=== PATIENT | female | born 1990 | race Caucasian/White ===

== ENCOUNTER 2020-04-04 15:59 | Outpatient (CLI) | payer OTHER ==
[2020-04-04 21:18] LABS: HB2 TOTAL 14.6 g/dL; HEMOGLOBIN A1C 0.51 g/dL; HEMOGLOBIN A1C % 5.3 % (4.6-6.2)
== END 2020-04-04 16:00 | disposition home or self-care (01) ==
LOC: LAB.S 15:59
PROVIDERS: ATTEND Obstetrics & Gynecology
DX: E28.2 Polycystic ovarian syndrome (principal); E03.9 Hypothyroidism, unspecified; Z32.01 Encounter for pregnancy test, result positive
CPT/HCPCS: 36415; 83036; 84144; 84443

== ENCOUNTER 2020-04-08 09:59 | Outpatient (CLI) | payer OTHER | END 2020-04-08 10:00 | disposition home or self-care (01) | LOC: LAB.S 09:59 | PROVIDERS: ATTEND Obstetrics & Gynecology | DX: E03.9 Hypothyroidism, unspecified (principal); E28.2 Polycystic ovarian syndrome; Z32.01 Encounter for pregnancy test, result positive | CPT/HCPCS: 36415; 84144 ==

== ENCOUNTER 2020-04-11 16:47 | Outpatient (CLI) | payer OTHER | END 2020-04-11 16:48 | disposition home or self-care (01) | LOC: LAB.S 16:47 | PROVIDERS: ATTEND Obstetrics & Gynecology | DX: E28.2 Polycystic ovarian syndrome (principal) | CPT/HCPCS: 36415; 84144 ==

== ENCOUNTER 2020-04-28 11:03 | Outpatient (CLI) | payer OTHER ==
[2020-04-28 16:18] LABS: BILIRUBIN,URINE NEGATIVE (NEGATIVE); GLUCOSE, URINE (UA) NEGATIVE (NEGATIVE); KETONES,URINE (UA) TRACE mg/dL (NEGATIVE); LEUKOCYTE ESTERASE, URINE NEGATIVE (NEGATIVE); NITRITE,URINE NEGATIVE (NEGATIVE); OCCULT BLOOD,URINE SMALL (NEGATIVE); PH,URINE 6.5 PH (5.0-7.5); PROTEIN,URINE NEGATIVE (NEGATIVE); UROBILINOGEN,URINE 0.2 (NORMAL) E.U./dL (NORMAL)
[2020-04-28 16:24] LABS: CLARITY,URINE HAZY (CLEAR)
[2020-04-28 16:46] LABS: BACTERIA,URINE Few /HPF (None Seen); MUCUS,URINE Moderate Strands; SQUAMOUS EPITHELIAL CELL,UR MANY Squamous (<= Few)
[2020-04-28 16:47] LABS: CRYSTALS,URINE 11-25 Triple Phos /LPF
[2020-04-28 19:34] LABS: TRICHOMONAS VAGINALIS DNA NEGATIVE (NEGATIVE)
== END 2020-04-28 23:59 | disposition home or self-care (01) ==
LOC: LAB.R 11:03
PROVIDERS: ATTEND Advanced Practice Midwife
DX: Z34.90 Encounter for supervision of normal pregnancy, unspecified, unspecified trimester (principal); Z36.89 Encounter for other specified antenatal screening
CPT/HCPCS: 81001; 87086; 87491; 87591; 87661

== ENCOUNTER 2020-05-04 15:59 | Outpatient (CLI) | payer OTHER ==
[2020-05-06 08:33] LABS: HIV AG/AB 4TH GEN NON-REACTIVE (NON-REACTIVE)
[2020-05-06 12:43] LABS: HEPATITIS C ANTIBODY NON-REACTIVE (NON-REACTIVE)
== END 2020-05-04 16:00 | disposition home or self-care (01) ==
LOC: LAB.S 15:59
PROVIDERS: ATTEND Obstetrics & Gynecology
DX: Z34.90 Encounter for supervision of normal pregnancy, unspecified, unspecified trimester (principal); Z36.89 Encounter for other specified antenatal screening; E28.2 Polycystic ovarian syndrome; E03.9 Hypothyroidism, unspecified
CPT/HCPCS: 36415; 84144; 84443; 86803; 87389

== ENCOUNTER 2020-06-10 18:47 | Outpatient (CLI) | payer OTHER ==
--- NOTE | 2020-06-22 16:33 | Ultrasound Report ---
PROCEDURE: OB First Trimester INDICATIONS: AMENORRHEA LESS THAN 14 WEEKS OUTSIDE/PRIOR DATING DATA: Last menstrual period (LMP): 03/03/2020. LMP-based estimated date of delivery (NEHEMIAH): 12/08/2020. First dating scan (date and location): 04/23/2020. Estimated date of delivery (NEHEMIAH) from first dating scan: 12/14/2020. TECHNIQUE: Real-time scanning was performed of the fetus and maternal pelvic organs, with image documentation. COMPARISON: Prior OB ultrasound. Studies 04/23/2020 and 06/10/2020. This study represents a supplement to the 06/10/2020 examination which did not include abdominal circumference evaluation. FINDINGS: There is a single living intrauterine gestation with posterior placenta, normal amniotic f luid index of 12.1 cm and a heart rate of 1 51 bpm. Maternal cervical length is normal at 5.7 c m. biometry is internally consistent, with a current estimated gestational age today of 15 week s 2 days. BPD 3.1 cm, 15 weeks 5 days. Head circumference 11.1 cm, 15 weeks 2 days. Abdominal circumf erence 9.2 cm, 15 weeks 2 days. Femur length 1.7 cm, 15 weeks 0 days. Estimated current gestational a ge from the earliest available accurate OB evaluation dated 04/23/[address] the current gestation at 14 weeks 5 days and therefore there has been appropriate interval growth considering measurement nickie iability. Embryo: No abnormality seen. Please note that anatomic survey should be performed at approxima tely 20 weeks gestation. Measurement variability in dating: +/- 4 weeks by LMP, +/- 7 days by mean sac diameter (use before 6 weeks gestation if crown-rump length not able to be measured), +/- 5 days by crown-rump length (6-12 weeks gestation). Maternal organs: Ovaries normal considering gestational status.. Limited images through the kidneys demonstrate no hydronephrosis. IMPRESSION: Single living intrauterine gestation with posterior placenta, normal amniotic fluid volume and approp riate interval growth over time. This study represents a supplement to the earlier OB ultrasound 06/10 and continues to show appropriate interval growth without abnormality identified. Please note that follow-up anatomic survey evaluation should be performed at approximately 20 weeks ge station for best accuracy. The delivery date remains projected to be centered on 12/14/2020. Reviewed by: Josue Sears MD on 06/21/2020 5:06 PM PDT Approved by: Josue Sears MD on 06/21/2020 5:06 PM PDT Station ID: [id number]
== END 2020-06-10 18:48 | disposition home or self-care (01) ==
LOC: DI 18:47
PROVIDERS: ATTEND Midwife
DX: O43.892 Other placental disorders, second trimester (principal); Z3A.15 15 weeks gestation of pregnancy
CPT/HCPCS: 76801

== ENCOUNTER 2020-06-20 15:58 | Outpatient (CLI) | payer OTHER | END 2020-06-20 15:59 | disposition home or self-care (01) | LOC: DI 15:58 | PROVIDERS: ATTEND Midwife | DX: Z53.9 Procedure and treatment not carried out, unspecified reason (principal) | CPT/HCPCS: 76801 ==